=== PATIENT | female | born 1950 | race Caucasian/White ===

== ENCOUNTER 2016-05-18 19:08 | Emergency (ER) | payer MEDICARE ==
[2016-05-18 20:00] VITALS: BP 152/77
[2016-05-18] MEDS ORDERED: Lidocaine 2% PF * 5 ML VIAL ONE (20:58)
[2016-05-18] MEDS ORDERED: Tetan/Diph/Pertus SYR(Tdap)* 0.5 ML SYR(BOOSTRIX) use SYR IM ONE (21:06)
--- NOTE | 2016-05-18 21:40 | UC ---
Ginette Varela Erika, scribed for Priyanka Otoole MD on 05/18/16 at 2044 . Laceration HPI - HPI Summary HPI Summary: Patient is a 66-year-old female presenting to the ED with a CC of left middle finger laceration [employer]. Patient reports that she was using a knife when the knife slipped and she accidentally sliced her finger. Pt reports a Hx of A Fib and a cardiac stent - takes blood thinners eliquis and plavix. Pt is unsure of her most recent tetanus vaccination. - History Of Current Complaint Chief Complaint: UCLaceration Stated Complaint: FINGER LAC Time Seen by Provider: 05/18/16 20:30 Hx Obtained From: Patient Laceration Location: Finger - left middle Mechanism Of Injury: Sharp Trauma Onset/Duration: Sudden Onset, Lasting Minutes, Still Present Severity: Moderate Pain Intensity: 3 Pain Scale Used: 0-10 Numeric - Allergies/Home Medications Allergies/Adverse Reactions: Allergies Allergy/AdvReac Type Severity Reaction Status Date / Time No Known Allergies Allergy Verified 05/18/16 19:54 Home Medications: Home Medications Apixaban* [Eliquis*] 5 mg PO BID 05/18/16 [History Confirmed 05/18/16] Atorvastatin* [Lipitor 10 MG*] 1 tab PO DAILY 05/18/16 [History Confirmed ] Clopidogrel TAB* [Plavix TAB*] 75 mg PO DAILY 05/18/16 [History Confirmed ] Metoprolol Tartrate TAB* [Lopressor TAB*] 1 tab PO BID 05/18/16 [History Confirmed 05/18/16] Ramipril CAP* [Altace CAP*] 1 tab PO 05/18/16 [History Confirmed 05/18/16] PMH/Surg Hx/FS Hx/Imm Hx Cardiovascular History Of: Reports: Cardiac Disorders - STENT-07/18, Atrial Fibrillation - Surgical History Surgical History: Yes Surgery Procedure, Year, and Place: HEART STENT. HYSTERECTOMY. ORAL. PLATE IN NECK - Family History Known Family History: Positive: Cardiac Disease, Other - cancer - Social History Occupation: Retired Lives: With Family Alcohol Use: None Substance Use Type: None Smoking Status (MU): Never Smoked Tobacco Review of Systems Constitutional: Negative Skin: Other - painful laceration to the left middle finger Respiratory: Negative Cardiovascular: Negative Psychological: Negative All Other Systems Reviewed And Are Negative: Yes Physical Exam Triage Information Reviewed: Yes Appearance: Well-Appearing, No Pain Distress, Well-Nourished Vital Signs: Initial Vital Signs Temp 98.1 F 05/18/16 19:57 Pulse 74 05/18/16 19:57 Resp 16 05/18/16 19:57 BP 152/77 05/18/16 19:57 Pulse Ox 100 05/18/16 19:57 Vital Signs Reviewed: Yes Eyes: Positive: Conjunctiva Clear ENT: Positive: Normal ENT inspection Neck: Positive: Supple Respiratory: Positive: No respiratory distress Cardiovascular: Positive: RRR, Pulses Normal, Brisk Capillary Refill Musculoskeletal: Positive: Strength Intact, ROM Intact Neurological: Positive: Alert, Muscle Tone Normal, Other: - sensation intact Psychological Exam: Normal Skin Exam: Other - 2 cm laceration to the ventral surface of the left middle DIP Laceration Repair - Laceration Repair 1 Description: Linear - curved linear Laceration Size After Repair: Length (cm) - 2 cm, Width (mm) - 1, Depth (mm) - 1 Modified For Repair: No Type Injection: Digital Anesthesia Used: 2.0% Lido Irrigation With Pressure Irrigation Device: Yes Closure Material: Sutures - 6 Closure Method: Single Layer Suture Of: Skin Suture Type: Nylon - 4.0 Laceration Course/Dx - Differential Dx - Laceration/Wound Differental Diagnoses: Laceration Provider Diagnoses: 1. Tetanus update. 2. Finger laceration with sutures Discharge - Discharge Plan Condition: Stable Disposition: HOME Patient Education Materials: Diphtheria/Acellular Pertussis/Tetanus Vaccine ( DTaP) (By injection), Care For Your Stitches (ED), Finger Laceration (ED) Referrals: Roberto Lora MD [Primary Care Provider] - Additional Instructions: You have six sutures in your left middle finger. They should be taken out by a medical professional in 7-10 days. Keep the finger clean and dry. Wash daily with soap and water. Watch for infection. Return to urgent care if any new or worsening symptoms. The documentation as recorded by the Ginette rojas Erika accurately reflects the service I personally performed and the decisions made by , Priyanka Otoole MD.
== END 2016-05-18 21:45 | disposition home or self-care (01) ==
LOC: UCEAST 19:08
DX: S61.213A Laceration without foreign body of left middle finger without damage to nail, initial encounter (principal); W26.0XXA Contact with knife, initial encounter; Y93.9 Activity, unspecified; Y92.9 Unspecified place or not applicable; Z23 Encounter for immunization; I48.91 Unspecified atrial fibrillation; Z79.01 Long term (current) use of anticoagulants
CPT/HCPCS: 12001; 90471; 90715; 99211; G0463